=== PATIENT | male | born 1970 | race Caucasian/White ===

== ENCOUNTER 2025-06-09 12:11 | Emergency (ER) | payer OTHER, SELFPAY ==
[2025-06-09 12:13] VITALS: BP 132/94
--- NOTE | 2025-06-09 14:05 | ED.GENMED ---
History of Present Illness
General
Chief Complaint: Skin Surface Trauma
Source: patient
Exam Limitations: none
Time Seen by Provider: 06/09/25 13:16
Nursing documentation reviewed up to this point in time: agreed with
History of Present Illness
History of Present Illness:
54-year-old male presenting to the emergency department today with concerns of left thigh laceration caused by a piece of tile that he was removing from a bathroom. Denies additional injuries denies any numbness weakness. Denies any issues with
movement of the knee afterward. Occurred just above the knee anteriorly
Past History
Past History
ED Past Medical History: None; Negative Asthma, HTN, Hypercholesterolemia or NIDDM
ED Past Surgical History: None
Social History
Tobacco: Former smoker
Alcohol: None
Personal:
Living: with family
Employment: Employed
Review of Systems
Review of Systems
Allergies reviewed?: Yes
All Other Systems: ROS reviewed and negative except as documented in HPI and ROS
Phy Exam
Physical Exam
Physical Exam:
GENERAL: Alert , in no apparent distress
EYE: pupils equal and reactive
NECK: Supple, no significant adenopathy.
ENT: o/p clr, mmm.
CARDIAC: Regular rate and rhythm .
LUNGS: Clear breath sounds bilaterally, no acute respiratory distress, no wheezes/rales/rhonchi
ABDOMEN: Soft, without focal tenderness, no r/g, no cvat
NEUROLOGICAL: Alert and oriented, no focal neuro deficits
SKIN: 2.5 cm laceration to the suprapatellar region superficial in depth no foreign body seen, warm and dry, skin intact.
MUSCULOSKELETAL: No edema, well perfused.
PSYCH: Normal and appropriate interaction.
Course
Orders/Labs/Results
Orders:
Orders
06/09/25 13:59
Tetanus/Diphth/Acelpertussis [Adacel] 0.5 ml IM .ONCE ONE
Vital Signs
Initial and Last Documented VS:
Initial Vital Signs
Temp Pulse Resp BP Pulse Ox
98.4 F 98 18 132/94 99
06/09/25 12:13 06/09/25 12:13 06/09/25 12:13 06/09/25 12:13 06/09/25 12:13
Last Documented Vital Signs
Temp Pulse Resp BP Pulse Ox
98.4 F 98 18 132/94 99
06/09/25 12:13 06/09/25 12:13 06/09/25 12:13 06/09/25 12:13 06/09/25 12:13
Procedures
Laceration Closure
Left Superior Anterior Leg:
Status of Wound: clean
Size of Wound in cm: 2.5
Description of Wound Edges: sharp
Preparation: cleaned with saline
Anesthesia: 1% Lidocaine with epi
Revision/Debridement: routine- no revision
Wound exploration: explored to base- no FB
Type of Closure: single layer closure
Skin Closure Material: 3-0 nylon
Number of sutures: 4
MDM/Problems Addressed
MDM/Problems Addressed:
54-year-old male presenting to the emergency department today with concerns of a laceration above the left knee occurring prior to arrival. Difficulty controlling bleeding at home. No foreign body seen cleaned thoroughly. Closed with 4
nondissolving stitches. Low risk for infection. Was given updated tetanus shot otherwise advised for follow-up in 12 to 14 days for suture removal. Return precautions given.
*Pulse Oximetry
SaO2: 99
Oxygen Mode of Delivery: Room air
Patient hypoxic: no (99)
*Critical Care Note
Total Time (30-74mins, 75-104mins- exclusive of procedures): Not Applicable
ED Attending Note
-
Portions of this chart may have been created with voice recognition software.� Occasional wrong word or��sound alike� substitutions may have occurred due to the inherent limitations of voice recognition software.
Discharge Plan
Departure
Patient Disposition: Home (Routine Discharge)
Date of Disposition: 06/09/25
Time of Disposition: 14:07
Patient with high blood pressure during this ER visit?: No
Condition: Good
Covid-19: Not Applicable
Discharge Problem:
Laceration of leg
Instructions: Laceration Repair With Stitches (DC)
Prescriptions:
No Action
oxycodone-acetaminophen 5 MG/325 MG tablet
1 tab PO Q4HPRN PRN (Reason: pain) Qty: 1 0RF
oxycodone-acetaminophen 5 MG/325 MG tablet
1 tab PO Q4HPRN PRN (Reason: Pain) Qty: 15 0RF
diphenhydramine HCl [Banophen] 25 MG capsule
25 mg PO Q4HPRN PRN (Reason: allergy) Qty: 20 0RF
prednisone 50 MG tablet
50 mg PO DAILY Qty: 4 0RF
epinephrine [EpiPen] 0.3 MG/0.3/SYRINGE auto-injector
0.3 mg IM .STAT PRN (Reason: dyspnea, anaphylaxis) Qty: 1 0RF
famotidine [Pepcid] 40 MG tablet
40 mg PO DAILY Qty: 14 0RF
Activity Restrictions/Additional Instructions:
You came to the emergency department today with concerns of a laceration to your left leg. This was closed with 4 stitches. Please keep the area clean covered and have these removed in 12 to 14 days. Return for any worsening, new or concerning
symptoms.
Interventions
Interventions:
*Risk Screen - Suicide Last Done: 06/09/25 12:13
*Neglect/Abuse Screening Last Done: 06/09/25 12:13
ED-Skin Assessment Last Done: 06/09/25 13:25
Discharge Date and Time
Print Language: BELARUSIAN
== END 2025-06-09 14:52 | disposition home or self-care (01) ==
LOC: EMR 12:11
PROVIDERS: EMERGENCY PHYSICIAN Student in an Organized Health Care Education/Training Program; FAMILY PHYSICIAN Family Medicine
DX: S71.112A Laceration without foreign body, left thigh, initial encounter (principal); W45.8XXA Other foreign body or object entering through skin, initial encounter; Z23 Encounter for immunization; Z87.891 Personal history of nicotine dependence
CPT/HCPCS: 99282; 12001; 90471; 90715